=== PATIENT | female | born 1980 | race Caucasian/White ===

== ENCOUNTER 2019-11-02 08:05 | Outpatient (CLI) | payer OTHER, SELFPAY ==
--- NOTE | ~2019-11-02 | MM_ITS ---
EXAMINATION: MM screening susana BI w ismael HISTORY: Screening mammogram TECHNIQUE: Craniocaudal and mediolateral oblique 3-D tomosynthesis images were obtained and synthetic 2-D images were generated. CAD analysis was submitted and interpreted. COMPARISON: No prior mammogram is available for comparison at this institution. BREAST PARENCHYMAL COMPOSITION: There are scattered areas of fibroglandular density. FINDINGS: There is no evidence of suspicious mass, calcification, or architectural distortion to sugg est malignancy in either breast. There has been no suspicious interval change. IMPRESSION: 1. No mammographic evidence of malignancy. 2. Recommend routine screening mammography in one year. BI-RADS Category 1: Negative Reviewed, dictated and finalized at location A. RVISOR MALTED MILK
== END 2019-11-02 08:06 | disposition home or self-care (01) ==
LOC: CHSIMG 08:09
PROVIDERS: PCP Family Medicine; Visit Provider Family Medicine
DX: Z12.31 Encounter for screening mammogram for malignant neoplasm of breast (principal)
CPT/HCPCS: 77063; 77067

== ENCOUNTER 2019-11-26 18:13 | Outpatient (CLI) | payer OTHER, SELFPAY ==
[2019-11-29 19:04] LABS: Hepatitis B Core Antibody Nonreactive (Nonreactive); Hepatitis B Surface Antigen Nonreactive (Nonreactive)
== END 2019-11-26 18:14 | disposition home or self-care (01) ==
LOC: CHSLAB 18:17
PROVIDERS: PCP Family Medicine
DX: G35 Multiple sclerosis (principal)
CPT/HCPCS: 36415; 86705; 87340

== ENCOUNTER 2025-08-20 10:52 | Outpatient (CLI) | payer OTHER, SELFPAY ==
--- NOTE | ~2025-08-20 | MR_ITS ---
EXAMINATION: MR brain/brain stem wo/w con DATE: 08/20/2025 12:50 INDICATION: Multiple sclerosis. TECHNIQUE: Magnetic resonance imaging (MRI) of the brain and brainstem was performed without and with 15 mL MultiHance intravenous contrast. COMPARISON: Head CT 06/20/2014 FINDINGS: There are greater than 10 total lesions of increased T2-weighted signal intensity in the brain. Of these lesions, multiple are periventricular, multiple are juxtacortical, and none are infratentorial. None of the lesions enhance. There is no acute ischemic infarct or intracranial hemorrhage. The ventricles are normal in size. The orbits are normal. The paranasal sinuses are clear. The mastoid air cells are normal. IMPRESSION: 1. Mild nonspecific cerebral white matter disease. The differential diagnosis includes premature chronic small vessel ischemic disease (especially if the patient has cardiovascular risk factors), demyelinating disease such as multiple sclerosis, drug abuse, vasculitis, or reactive astrocytosis (gliosis) secondary to nonspecific etiology. Reviewed, dictated and finalized at location E. ROOM SUPERVISOR IMPRESSION: 1. Mild nonspecific cerebral white matter disease. The differential diagnosis i ncludes premature chronic small vessel ischemic disease (especially if the agueda ent has cardiovascular risk factors), demyelinating disease such as multiple sc lerosis, drug abuse, vasculitis, or reactive astrocytosis (gliosis) secondary t o nonspecific etiology.
--- NOTE | ~2025-08-20 | MR_ITS ---
EXAMINATION: MR cervical spine wo/w con DATE: 08/20/2025 12:50 INDICATION: Multiple sclerosis. TECHNIQUE: Magnetic resonance imaging (MRI) of the cervical spine was performed without and with 15 mL MultiHance intravenous contrast. COMPARISON: None FINDINGS: There is mild kyphosis of cervical spine. Vertebral body heights are normal. There is mildly decreased disc height at C5-C6 and C6-C7. The spinal cord signal intensity is normal. The following disc levels are specifically discussed: C2-C3: The disc does not extend beyond the endplate margin. There is no uncovertebral joint osteoarthritis. There is mild bilateral facet joint osteoarthritis. There is no neural foraminal stenosis. There is no central canal stenosis. C3-C4: The disc does not extend beyond the endplate margin. There is no uncovertebral joint osteoarthritis. There is mild bilateral facet joint osteoarthritis. There is no neural foraminal stenosis. There is no central canal stenosis. C4-C5: There is a central protrusion. There is mild left uncovertebral joint osteoarthritis. There is severe right and mild left facet joint osteoarthritis. There is mild left neural foraminal stenosis. There is mild central canal stenosis. C5-C6: There is a central extrusion. There is moderate left uncovertebral joint osteoarthritis. There is mild bilateral facet joint osteoarthritis. There is mild left neural foraminal stenosis. There is mild central canal stenosis. C6-C7: There is a central extrusion. There is moderate bilateral uncovertebral joint osteoarthritis. There is no facet joint osteoarthritis. There is mild bilateral neural foraminal stenosis. There is mild central canal stenosis. C7-T1: There is a central protrusion. There is no uncovertebral joint osteoarthritis. There is mild bilateral facet joint osteoarthritis. There is no neural foraminal stenosis. There is mild central canal stenosis. IMPRESSION: 1. Normal spinal cord. 2. Mild cervical spondylosis. Reviewed, dictated and finalized at location E. ION ATTENDANT
--- NOTE | ~2025-08-20 | MR_ITS ---
EXAMINATION: MR thoracic spine wo/w con DATE: 08/20/2025 12:50 INDICATION: Multiple stenosis. TECHNIQUE: Magnetic resonance imaging (MRI) of the thoracic spine was performed without and with 15 mL MultiHance intravenous contrast. COMPARISON: None FINDINGS: There is 4 degrees dextrocurvature of thoracic spine. Vertebral body heights are normal. Intervertebral disc heights are normal. There are central protrusions at T5-T6, T6-T7, and T10-T11 with mild central canal stenosis. There is multilevel mild facet joint osteoarthritis. No neural foraminal stenosis. There is increased T2-weighted signal intensity in the spinal cord at T11 on the right posteriorly. No contrast enhancement. IMPRESSION: 1. Spinal cord lesion, consistent with multiple sclerosis. Reviewed, dictated and finalized at location E. BAGGER
--- OUTSIDE RECORDS SUMMARY | 2025-08-20 10:56 | XMS_ITS | Clinical Summary ---
Author Organization [facility] Address [address] [place] [address] Care Team Providers Care Hedis Nurse Name Role Phone Kyler Escobar MD Primary Care Provider Allergies Active Allergy Reactions Criticality Noted Date Comments Cephalexin Shortness of Breath High 04/10/2017 hives Cephalosporins Anaphylaxis High 08/23/2021 Medications modafinil 200 MG tablet Take 200 mg by mouth 2 (two) times daily. Active NON FORMULARY Take 4.5 mg by mouth daily. Active Social History Tobacco Use Types Packs/Day Years Used Date Smoking Tobacco: Never Smokeless Tobacco: Never Alcohol Use Standard Drinks/Week Comments Not Currently 0 (1 standard drink = 0.6 oz pur e alcohol) Comments No Sex and Gender Information Value Date Recorded Sex Assigned at Not on file Legal Sex Female 7:24 PM CDT Gender Identity Not on file Sexual Orientation Not on file Last Filed Vital Signs Vital Sign Reading Time Taken Comments Blood Pressure 156/77 08/23/2021 10:47 AM CHARTER SCHOOL EXECUTIVE DIRECTOR Pulse 113 08/23/2021 10:47 AM CHARTER SCHOOL EXECUTIVE DIRECTOR Temperature 36.5 C (97.7 F) 08/23/2021 10:47 AM CHARTER SCHOOL EXECUTIVE DIRECTOR Respiratory Rate 20 08/23/2021 10:47 AM CHARTER SCHOOL EXECUTIVE DIRECTOR Oxygen Saturation 100% 08/23/2021 10:47 AM CHARTER SCHOOL EXECUTIVE DIRECTOR Inhaled Oxygen Concentration - - Weight 99.8 kg (220 lb) 08/23/2021 10:47 AM CHARTER SCHOOL EXECUTIVE DIRECTOR Height 172.7 cm (5' 8) 08/23/2021 10:47 AM CHARTER SCHOOL EXECUTIVE DIRECTOR Body Mass Index 33.45 08/23/2021 10:47 AM CHARTER SCHOOL EXECUTIVE DIRECTOR Plan of Treatment Health Maintenance Due Date Last Done Comments Colorectal Cancer Screening Colonoscopy (10 Years) 1978 Annual Physical 1981 Hepatitis C 1996 DTaP, Tdap and Td Vaccines ( 1 - Tdap) 1997 Hepatitis B Vaccines (1 of 3 - 19+ 3-dose series) 1997 Mammogram Screening 2018 COVID-19 Vaccine (1 - 2024-2 6 season) 2025 Influenza Adult (#1) 2025 Hepatitis A Vaccines Aged Out No long er eligible based on patient's age to complete this topic Meningococcal B Vaccine Aged Out No l onger eligible based on patient's age to complete this topic Meningococcal Vaccine Aged Out No arianna gege eligible based on patient's age to complete this topic Pneumococcal Vaccine: Pediat rics (0 to 5 Years) and At-Risk Patients (6 to 49 Years) Aged Out No longer eligible b ased on patient's age to complete this topic RSV Immunizations Under 20 Months Aged Out No longer eligible based on patient's age to complete this topic Insurance Care Teams Hedis Nurse Relationship Specialty Start Date End Date Kyler Escobar MD [address] [place] [phone] PCP - General FAMILY PRACTICE 08/23/21
--- OUTSIDE RECORDS SUMMARY | 2025-08-20 10:56 | XMS_ITS | Clinical Summary ---
Author Organization [facility] Address [address] [place] [address] Care Team Providers Care Historic Sites Registrar Name Role Phone Kyler Escobar MD Primary Care Provider Allergies Active Allergy Reactions Criticality Noted Date Comments Cephalosporins Anaphylaxis High Medications naltrexone (DEPADE) 50 mg tablet take 1 tablet by oral route every day 0 0 01/13/2017 Active modafinil (PROVIGIL) 200 mg tablet take 1 tablet by oral route every day in the morning 0 0 01/13/2017 Active Active Problems No known active problems Resolved Problems Problem Noted Date Diagnosed Date Resolved Date Leukopenia 04/10/2017 02/17/2018 Surgical History Surgery Date Site/Laterality Comments ENDOMETRIAL ABLATION W/ NOVASURE 09/08/2011 - 09/07/2012 DILATION AND CURETTAGE OF UTERUS 09/08/2001 - 09/07/2002 inverted uterus & PP hemorrhage SECTION 2002, 2006, & 2010 LAPAROSCOPIC TOTAL HYSTERECTOMY 09/08/2015 - 09/07/2016 with BS, for pelvic pain & adhesions, enlarged uterus, dyspareunia COLECTOMY 09/08/2015 - 09/07/2016 precancerous colon mass: resection of ascending & part of transverse colon Medical History Medical History Date Comments History of Lyme disease Multiple sclerosis Family History Medical History Relation Name Comments Diabetes Father Hypertension Father Liver disease Father portal hyperte nsion & WOLFF Colon cancer Maternal Grandfather Esophageal cancer Paternal Grandfather CO D Diabetes Paternal Grandmother Uterine cancer Paternal Grandmother COD a t age 40 Relation Name Status Comments Father Maternal Grandfather Paternal Grandfather Paternal Grandmother (Age 40) Social History Tobacco Use Types Packs/Day Years Used Date Smoking Tobacco: Never Smokeless Tobacco: Never Tobacco Cessation:Counseling Given: Yes Alcohol Use Standard Drinks/Week Comments No 0 (1 standard drink = 0.6 oz pur e alcohol) Comments No Sex and Gender Information Value Date Recorded Sex Assigned at Not on file Legal Sex Female 10:15 AM LOAN ORIGINATOR Gender Identity Not on file Sexual Orientation Not on file Occupation Industry Job Start Date Job End Date RN Not on file Not on file Not on file Obstetrics History Para Term AB IAB SAB Ectopic Multiple Livin g Live Births 4 4 3 1 0 0 0 0 0 4 4 Date Outcome GA Total Labor Labor/2nd/3rd Weight Sex Type Anes PTL Jigna A1 A5 Name Clin Term Term Term Last Filed Vital Signs Vital Sign Reading Time Taken Comments Blood Pressure 120/80 02/17/2018 10:34 AM CDT Pulse 57 01/13/2017 11:02 AM CDT Temperature - - Respiratory Rate - - Oxygen Saturation 99% 01/13/2017 11:02 AM CDT Inhaled Oxygen Concentration - - Weight 98.9 kg (218 lb) 02/17/2018 10:34 AM CDT Height 172.7 cm (5' 8) 02/17/2018 10:34 AM CDT Body Mass Index 33.15 02/17/2018 10:34 AM CDT Plan of Treatment Not on file Care Teams Historic Sites Registrar Relationship Specialty Start Date End Date Kyler Escobar MD PCP - General 03/20/17
--- OUTSIDE RECORDS SUMMARY | 2025-08-20 10:56 | XMS_ITS | Clinical Summary ---
Author Organization [facility] Address [address] [facility] [place] [address] Care Team Providers Care Wool Sorter Name Role Phone Kyler Escobar MD Primary Care Provider [phone] Allergies Active Allergy Reactions Criticality Noted Date Comments Cephalexin Shortness of Breath/Wheezing High 017 hives Medications OTHERIndication s:low dose naltrexone 4.5 mg Take 4.5 mg by mouth daily Provider please include Medication name, dose, route and frequency . Active glatiramer (COPAXONE) 40 mg/mL Syringe Inject 40 mg by subcutaneous injection every Friday, Friday, and Friday MWF . Active modafinil (PROVIGIL) 200 mg Tablet Take 200 mg by mouth 2 times daily. Active Active Problems Problem Noted Date Diagnosed Date Leukopenia 04/10/2017 Family History Medical History Relation Name Comments Healthy Brother 1 Healthy Brother 2 Diabetes Father Healthy Mother Relation Name Status Comments Brother 1 Alive Brother 2 Alive Brother 3 Father Alive Mother Alive Social History Tobacco Use Types Packs/Day Years Used Date Smoking Tobacco: Never Alcohol Use Standard Drinks/Week Comments Yes 0 (1 standard drink = 0.6 oz pur e alcohol) rarely Comments No Sex and Gender Information Value Date Recorded Sex Assigned at Not on file Legal Sex Female 2:38 PM CDT Gender Identity Not on file Sexual Orientation Not on file Last Filed Vital Signs Vital Sign Reading Time Taken Comments Blood Pressure 94/64 07/17/2017 9:43 AM ACCOUNT OFFICER Pulse 84 07/17/2017 9:43 AM ACCOUNT OFFICER Temperature 36.9 C (98.4 F) 07/17/2017 9:43 AM ACCOUNT OFFICER Respiratory Rate 16 07/17/2017 9:43 AM ACCOUNT OFFICER Oxygen Saturation - - Inhaled Oxygen Concentration - - Weight 88.6 kg (195 lb 6.4 oz) 07/17/2017 9:43 A M ACCOUNT OFFICER Height 172.7 cm (5' 8) 07/17/2017 9:43 AM ACCOUNT OFFICER Body Mass Index 29.71 07/17/2017 9:43 AM ACCOUNT OFFICER Plan of Treatment Health Maintenance Due Date Last Done Comments DTAP/TDAP/TD VACCINES (1 - Tdap) 1997 HEPATITIS B VACCINES (1 of 3 - 19+ 3-dose series) 09/08 HPV/Cotest (21-29) 1999 CERVICAL CANCER SCREENING 2008 HPV/Cotest (30-65) 2008 PAP SMEAR 2008 BREAST CANCER SCREENING 2018 COLORECTAL SCREENING 2023 Colorectal Cancer Screening 2023 FIT-DNA Q 3 years 2023 FIT/FOBT Q 1 year 2023 Flex Sig/CT Colonography Q 5 years 2023 INFLUENZA VACCINE (#1) 2025 HPV VACCINES (No Doses Required) Completed Insurance [facility] [employer] PPO [id number] Care Teams Wool Sorter Relationship Specialty Start Date End Date Kyler Escobar MD [address] [place] [phone] PCP - General Family Practice 04/10/17
--- OUTSIDE RECORDS SUMMARY | 2025-08-20 10:56 | XMS_ITS | Encounter Summary ---
Author Organization [facility] Address [address] [place] [address] Care Team Providers Care Lacquer Dipping Machine Operator Name Role Phone Kyler Escobar MD Primary Care Provider Encounter Details Date Type Department Care Team (Late st Contact Info) Description 02/13/2019 Abstract [facility] CONVERSION [address] [place] [address] , Generic ConversionMD Social History Tobacco Use Types Packs/Day Years Used Date Smoking Tobacco: Never Assessed Comments Unknown Sex and Gender Information Value Date Recorded Sex Assigned at Not on file Legal Sex Female 7:24 PM CDT Gender Identity Not on file Sexual Orientation Not on file documented as of this encounter Plan of Treatment Not on file documented as of this encounter Visit Diagnoses Not on filedocumented in this encounter Care Teams Lacquer Dipping Machine Operator Relationship Specialty Start Date End Date Kyler Escobar MD [address] [place] [address] [phone] PCP - General FAMILY PRACTICE 08/23/21 documented as of this encounter
== END 2025-08-20 10:53 | disposition home or self-care (01) ==
LOC: CHSIMG 10:54
PROVIDERS: PCP Family Medicine; Visit Provider Psychiatry & Neurology Neurology
DX: G35.D Multiple sclerosis, unspecified (principal); G95.9 Disease of spinal cord, unspecified; R90.82 White matter disease, unspecified; M43.02 Spondylolysis, cervical region
CPT/HCPCS: 70553; 72156; 72157; A9577